=== PATIENT | male | born 1965 | race Two or more races ===

== ENCOUNTER 2022-07-20 01:07 | Emergency (ER) | payer MEDICAID, OTHER ==
[~2022-07-20] VITALS: Ht 177.8 cm; Wt 98.0 kg
[2022-07-20 01:50] VITALS: BP 151/105
[2022-07-20] MEDS ORDERED: AMOX-277 PO (04:22)
[2022-07-20] MEDS ORDERED: IBUP800T27 PO (04:22)
[2022-07-20] MEDS ORDERED: KETOROLAC TROMETH 30 MG/ML 1ML VIAL IM ONE (04:30)
== END 2022-07-20 04:41 | disposition home or self-care (01) ==
LOC: ER 01:07
DX: K04.7 Periapical abscess without sinus (principal)
CPT/HCPCS: 96372; 99283; J1885

== ENCOUNTER 2022-11-06 11:34 | Emergency (ER) | payer MEDICAID ==
[~2022-11-06] VITALS: Ht 177.8 cm; Wt 95.6 kg
[~2022-11-06 11:34] MED LIST: AMOX-277 PO; IBUP800T27 PO
[2022-11-06] MEDS ORDERED: SODIUM CHLORIDE 0.9% 1,000 ML IVB ONE (13:00)
[2022-11-06] MEDS ORDERED: ONDANSETRON HCL 4 MG/2 ML VIAL IV ONE (13:00)
[2022-11-06] MEDS ORDERED: KETOROLAC TROMETH 30 MG/ML 1ML VIAL IV ONE (13:00)
[2022-11-06 13:11] LABS: Basophils # (auto) 0.1 10 ^3/uL (0-0.2); Basophils % (auto) 0.9 % (0.0-2.0); Eosinophils # (auto) 0.1 10 ^3/uL (0-0.8); Eosinophils % (auto) 1.8 % (0.0-7.0); Hematocrit 46.7 % (41.0-53.0); Hemoglobin 15.5 g/dL (13.5-17.5); Lymphocytes # (auto) 1.5 10 ^3/uL (0.4-5.4); Lymphocytes % (auto) 25.2 % (10.0-50.0); Mean Corpuscular Hemoglobin 30.6 pg (28.0-32.0); Mean Corpuscular Hgb Conc. 33.2 g/dL (32.0-36.0); Mean Corpuscular Volume 92.2 fL (80.0-100.0); Monocytes # (auto) 0.4 10 ^3/uL (0-1.3); Monocytes % (auto) 6.4 % (0.0-12.0); Neutrophils % (auto) 65.7 % (37.0-80.0); Nucleated Red Blood Cells % 0.1 %; Red Blood Cells 5.06 10^6/uL (4.5-5.90); Red Cell Distribution Width 13.8 % (11.8-14.3)
[2022-11-06 13:37] LABS: Urine Bacteria NONE SEEN /hpf (None Seen); Urine Blood Negative /uL (Negative); Urine Mucus FEW (None Seen); Urine Specific Gravity 1.025 (1.001-1.035); Urine WBC 1 /hpf (0 - 3)
[2022-11-06 13:46] LABS: Albumin 3.8 g/dL (3.4-5.0); Calcium 8.6 mg/dL (8.5-10.1); Potassium 3.9 mmol/L (3.5-5.1)
[2022-11-06 13:51] LABS: BUN/Creatinine Ratio 13.3 (10.0-20.0); Bilirubin, Total 0.5 mg/dL (0.2-1.0); Total Protein 8.1 g/dL (6.4-8.2)
[2022-11-06] MEDS ORDERED: TRAM50TA2 PO (14:39)
[2022-11-06] MEDS ORDERED: ONDA-144 PO (14:39)
[2022-11-06 15:55] VITALS: BP 143/78
== END 2022-11-06 16:00 | disposition home or self-care (01) ==
LOC: ER 11:34
DX: R10.9 Unspecified abdominal pain (principal)
CPT/HCPCS: 36415; 74176; 80053; 81001; 83690; 85025; 96361; 96374; 96375; 99285; J1885; J2405; J7030

== ENCOUNTER 2023-03-01 11:34 | Emergency (ER) | payer MEDICAID ==
[~2023-03-01] VITALS: Ht 177.8 cm; Wt 94.1 kg
[~2023-03-01 11:34] MED LIST changes: -AMOX-277 PO; +AMOX875T4 PO; +IBUP-1456 PO; -IBUP800T27 PO; +ONDA-144 PO; +TRAM50TA2 PO
[2023-03-01 12:31] VITALS: BP 138/98; PULSE 69; RESP 18; TEMP 97; O2SAT 98
[2023-03-01] MEDS ORDERED: KETOROLAC TROMETH 60MG/2ML VIAL IM ONE (12:45)
[2023-03-01] MEDS ORDERED: METH-1182 PO (13:13)
[2023-03-01] MEDS ORDERED: IBUP-1456 PO (13:13)
== END 2023-03-01 13:17 | disposition home or self-care (01) ==
LOC: ER 11:34
DX: S39.012A Strain of muscle, fascia and tendon of lower back, initial encounter (principal); M54.42 Lumbago with sciatica, left side; F17.210 Nicotine dependence, cigarettes, uncomplicated; Z79.1 Long term (current) use of non-steroidal anti-inflammatories (NSAID); Z79.2 Long term (current) use of antibiotics; Z79.899 Other long term (current) drug therapy; X50.1XXA Overexertion from prolonged static or awkward postures, initial encounter; Y93.89 Activity, other specified; Y92.89 Other specified places as the place of occurrence of the external cause; Y99.8 Other external cause status
CPT/HCPCS: 72100; 96372; 99283; J1885

== ENCOUNTER 2023-05-20 14:21 | Emergency (ER) | payer MEDICAID ==
[~2023-05-20] VITALS: Ht 177.8 cm; Wt 94.0 kg
[~2023-05-20 14:21] MED LIST changes: +METH-1182 PO
[2023-05-20 16:11] VITALS: BP 158/97; PULSE 100; RESP 20; TEMP 98.2; O2SAT 99
[2023-05-20] MEDS ORDERED: LIDOCAINE 1% HCL (LOCAL ANESTH.) INJ 20ML MDV IJ ONE (16:15)
[2023-05-20] MEDS ORDERED: TETANUS-DIPTH-ACEL PERTUSSIS 0.5ML SYR Tdap IM ONE (16:30)
[2023-05-20] MEDS ORDERED: CIPR-173 PO (16:50)
== END 2023-05-20 17:19 | disposition home or self-care (01) ==
LOC: ER 14:21
DX: S60.451A Superficial foreign body of left index finger, initial encounter (principal); F17.210 Nicotine dependence, cigarettes, uncomplicated; X50.0XXA Overexertion from strenuous movement or load, initial encounter; Y93.89 Activity, other specified; Y92.89 Other specified places as the place of occurrence of the external cause; Y99.8 Other external cause status
CPT/HCPCS: 10120; 73130; 90471; 90715; 99285; J2001